=== PATIENT | female | born 1955 | race Caucasian/White ===

== ENCOUNTER 2022-01-27 17:43 | Emergency (ER) | payer BC, OTHER ==
[2022-01-27 18:07] VITALS: BP 162/82; PULSE 108; RESP 16; TEMP 98.3; BMI 27.3
[2022-01-27] MEDS ORDERED: SODIUM CHLORIDE 1,000 ML IV STA (19:29)
[2022-01-27] MEDS ORDERED: ACETAMINOPHEN 1000 MG/100 ML BAG IVPB ONE (19:29)
[2022-01-27] MEDS ORDERED: ACETAMINOPHEN INJECTION 100 ML IVPB ONE (20:18)
[2022-01-27 20:32] LABS: BASO % 0.5 % (0-2.0); EOS % 0.1 % (0-4.5); HEMATOCRIT 38.2 % (32.4-45.2); HEMOGLOBIN 12.8 GM/dL (10.7-15.3); LYMPH % 9.6 % (8-40); MCH 28.7 pg (25.7-33.7); MCHC 33.5 g/dl (32.0-36.0); MEAN CELL VOLUME 85.8 fl (80-96); MEAN PLT VOLUME 7.8 fl (7.5-11.1); MONO % 8.9 % (3.8-10.2); NEUT % 80.9 % (42.8-82.8); PLATELET COUNT 216 10^3/uL (134-434); RBC 4.46 M/mm3 (3.60-5.2); RDW 12.6 % (11.6-15.6)
[2022-01-27 21:10] LABS: ALBUMIN 3.3 g/dl (3.4-5.0); CALCIUM 8.8 mg/dL (8.5-10.1)
[2022-01-27 21:11] LABS: BLOOD UREA NITROGEN 17.4 mg/dL (7-18)
[2022-01-27 21:13] LABS: CREATININE 0.7 mg/dL (0.55-1.3)
[2022-01-27 21:15] LABS: BILIRUBIN,TOTAL 0.4 mg/dL (0.2-1)
[2022-01-27 21:32] LABS: TOT PROT 7.3 g/dl (6.4-8.2)
== END 2022-01-27 22:52 | disposition home or self-care (01) ==
LOC: JER 17:43
PROC: 3E0333Z Introduction of Anti-inflammatory into Peripheral Vein, Percutaneous Approach (ICD-10-PCS; principal; 2022-01-27)
PROC: 3E0337Z Introduction of Electrolytic and Water Balance Substance into Peripheral Vein, Percutaneous Approach (ICD-10-PCS; 2022-01-27)
DX: J20.9 Acute bronchitis, unspecified (principal)
CPT/HCPCS: 0241U-QW; 36415; 71046-TC-FY; 80053; 85025; 93005; 93010; 99285-25